=== PATIENT | female | born 1950 | race Caucasian/White ===

== ENCOUNTER 2017-11-03 21:20 | Emergency (ER) | payer MEDICARE, OTHER ==
--- NOTE | 2017-11-03 22:22 | ED Physician Documentation ---
PD HPI UPPER EXT INJURY - Stated complaint Stated Complaint: R WRIST INJURY - Chief complaint Chief Complaint: Ext Problem - History obtained from History obtained from: Patient - History of Present Illness Location: Right, Wrist Type of injury: Fall Where injury occurred: Street Timing - onset: Today Timing - duration: Hours (1) Timing - details: Abrupt onset Pain level max: 5 Pain level now: 3 Improved by: Rest, Ice, Immobilization Worsened by: Moving, Palpating Associated symptoms: Swelling. No: Weakness, Numbness, Tingling Contributing factors: No: Anticoagulated Recently seen: Not recently seen - Additonal information Additional information: Pt is right handed Review of Systems Respiratory: denies: Cough GI: denies: Nausea, Vomiting Skin: denies: Rash Musculoskeletal: denies: Neck pain, Back pain Neurologic: denies: Confused, Altered mental status, Head injury, LOC PD PAST MEDICAL HISTORY - Past Medical History Past Medical History: Yes Cardiovascular: Hypertension Neuro: None HEENT: None - Past Surgical History Past Surgical History: Yes General: Cholecystectomy - Present Medications Home Medications: Ambulatory Orders Medication Instructions Recorded Confirmed Lisinopril 06/24/15 06/24/15 - Allergies Allergies/Adverse Reactions: Allergies Allergy/AdvReac Type Severity Reaction Status Date / Time No Known Drug Allergies Allergy Verified 11/03/17 21:56 - Social History Does the pt smoke?: No Smoking Status: Never smoker Does the pt drink ETOH?: No Does the pt have substance abuse?: No - Immunizations Immunizations are current?: Yes - POLST Patient has POLST: No PD ED PE NORMAL - Vitals Vital signs reviewed: Yes - General General: Alert and oriented X 3, No acute distress - HEENT HEENT: Atraumatic, PERRL, Moist mucous membranes - Neck Neck: Supple, no meningeal sign - Cardiac Cardiac: RRR - Respiratory Respiratory: No respiratory distress, Clear bilaterally - Back Back: No spinal TTP - Derm Derm: Warm and dry - Extremities Extremities: Other (R wrist - TTP over the Distal radius. Swelling present. Mild deformity. Neurovascularly intact. No snuffbox tenderness. Otherwise normal examination of the hand and forearm) - Neuro Neuro: Alert and oriented X 3 Results - Vitals Vitals: Vital Signs - 24 hr 11/03/17 11/03/17 11/03/17 21:54 22:30 22:55 Temperature 36.9 C Heart Rate 85 76 Respiratory 18 17 18 Rate Blood Pressure 197/112 H 208/114 H O2 Saturation 96 97 Oxygen O2 Source Room air - Rads (name of study) Right wrist x-ray Radiology: Prelim report reviewed, EMP read contemporaneously, See rad report ( Acute right distal radial intra-articular fracture at the radial styloid, appears mildly comminuted with minimal displacement. Adjacent soft tissue swelling. Moderate first carpometacarpal osteoarthritis. ) Procedures - Splint (location) R wrist Splint applied by: Physician, Tech Type of splint: Fiberglass, Short arm, Volar cock up Other: Patient tolerated well, No complications, Neurovascular intact, Sling provided PD MEDICAL DECISION MAKING - ED course Complexity details: reviewed results, re-evaluated patient, considered differential, d/w patient ED course: Patient is a 67-year-old female who presents to the emergency department with a right wrist injury after a fall. Appears to have a right distal radius intra- articular fracture at the radial styloid, appears mildly comminuted with minimal displacement. Neurovascularly intact. Placed in a splint. We will have her follow-up with orthopedics for further care. Patient counseled regarding signs and symptoms for which I believe and urgent re-evaluation would be necessary. Patient with good understanding of and agreement to plan and is comfortable going home at this time This document was made in part using voice recognition software. While efforts are made to proofread this document, sound alike and grammatical errors may occur. Departure - Departure Disposition: 01 Home, Self Care Clinical Impression: Distal radius fracture, right Qualifiers: Encounter type: initial encounter Fracture type: closed Fracture morphology: unspecified fracture morphology Qualified Code(s): S52.501A - Unspecified fracture of the lower end of right radius, initial encounter for closed fracture Hypertension Qualifiers: Hypertension type: unspecified Qualified Code(s): I10 - Essential (primary) hypertension Condition: Good Instructions: ED Fx Forearm Radius Ulna No Redu Requ Follow-Up: [facility] [Provider Group] - Within 1 week Franky Tillman MD [Provider Admit Priv/Credential] - Comments: Return if you worsen. You can use aleve or tylenol as needed for pain. Wear the splint until seen by orthopedics. Discharge Date/Time: 11/03/17 22:55
--- NOTE | 2017-11-03 22:29 | XRAY Report ---
EXAM: RIGHT WRIST RADIOGRAPHY EXAM DATE: 11/03/2017 10:12 PM. CLINICAL HISTORY: FELL DOWN, INJURING R WRIST..+ SWELLING. COMPARISON: None. TECHNIQUE: 4 views. FINDINGS: Acute right distal radial intra-articular fracture at the radial styloid, appears mildly co mminuted with minimal displacement. Adjacent soft tissue swelling. Moderate first carpometacarpal osteoarthritis. No subluxation. IMPRESSION: Acute right distal radial intra-articular fracture at the radial styloid, appears mildly comminuted with minimal displacement. Adjacent soft tissue swelling. Moderate first carpometacarpal osteoarthritis. [facility] Referring Provider Line: [phone] SITE ID: [id number]
--- NOTE | 2017-11-03 22:29 | XRAY Preliminary Report ---
Exam: XR WRIST 4 VIEW RT IMPRESSION: Acute right distal radial intra-articular fracture at the radial styloid, appears mildly comminuted with minimal displacement. Adjacent soft tissue swelling. Moderate first carpometacarpal osteoarthritis. [facility] SITE ID: [id number]
[2017-11-03 22:31] VITALS: BP 208/114
== END 2017-11-03 22:55 | disposition home or self-care (01) ==
LOC: ED 21:20
DX: S52.501A Unspecified fracture of the lower end of right radius, initial encounter for closed fracture (principal); W01.0XXA Fall on same level from slipping, tripping and stumbling without subsequent striking against object, initial encounter; Y92.410 Unspecified street and highway as the place of occurrence of the external cause; I10 Essential (primary) hypertension
CPT/HCPCS: 29125; 99283